=== PATIENT | female | born 1965 | race Caucasian/White ===

== ENCOUNTER → 2018-02-27 | Outpatient (CLI) | payer OTHER ==
[2018-02-27 09:24] LABS: ABSOLUTE NEUTROPHILS 4.8 thou/uL (1.4-8.2); EOSINOPHILS 4.8 % (0.0-3.0); HEMATOCRIT 41.2 % (37.0-47.0); HEMOGLOBIN 13.6 gm/dL (12.0-15.0); MCH 26.6 pg (26.0-34.0); MCHC 32.9 g/dL (28.0-37.0); MCV 81.1 fL (80.0-100.0); MONOCYTES 6.2 % (1.0-8.0); PLATELET COUNT 278 thou/uL (150-400); RBC 5.09 mil/uL (4.20-5.00); RDW 14.1 % (10.5-14.5); WBC 8.9 thou/uL (4.0-11.0)
[2018-02-27 09:50] LABS: ALBUMIN 3.8 g/dL (3.4-5.0); CALCIUM 9.1 mg/dL (8.5-10.1); CREATININE 1.3 mg/dL (0.6-1.0); POTASSIUM 4.2 mmol/L (3.5-5.1); TOTAL BILIRUBIN 0.5 mg/dL (<0.1-1.0); TOTAL PROTEIN 7.5 g/dL (6.4-8.2)
== END ==
LOC: CAT 08:53
PROVIDERS: Internal Medicine Cardiovascular Disease
DX: I48.91 Unspecified atrial fibrillation (principal); M47.814 Spondylosis without myelopathy or radiculopathy, thoracic region

== ENCOUNTER 2018-05-14 06:55 | Observation (INO) | payer OTHER ==
[2018-05-14] VITALS (13 sets, daily range): BP systolic 122–144; BP diastolic 71–89
[~2018-05-14] VITALS: Ht 167.6 cm; Wt 99.7 kg
--- NOTE | ~2018-05-14 | D ---
[facility] [place] [address] DISCHARGE SUMMARY Name: ERNESTO HERZOG Room #: 212-P [facility] Shaneka MAma#: [id number] Admission: 05/14/18 ������������������ Attend Phys: Stanley Hui MD Discharge: 05/15/18 ������������������ Date of : 67 Report #: [id number] THIS REPORT FOR: //name// CC: CRYSTAL HITCHCOCK FAM unknown Stanley [facility] DATE OF SERVICE: 05/15/2018 DISCHARGE DIAGNOSIS: Paroxysmal atrial fibrillation. PROCEDURES PERFORMED: AFib ablation. HOSPITAL COURSE: The patient is a 52-year-old female with history of paroxysmal AFib, despite antiarrhythmic drugs who is here for an ablation. She underwent successful AFib ablation with isolation of the 4 pulmonary veins using cryoablation. This was a straightforward procedure that took approximately 1 hour with no issues. HOSPITAL COURSE: She was monitored in the hospital overnight. She did well without any major issues. She had a mild sore throat from the intubation, but otherwise denied any chest pains, shortness of breath, fevers or chills or groin discomfort. DISCHARGE PHYSICAL EXAMINATION: HEART: Regular rate and rhythm. LUNGS: Clear to auscultation bilaterally. EXTREMITIES: Right groin showed no bruising or hematoma. DISCHARGE PLAN: Telemetry demonstrated normal sinus rhythm. As such, she was deemed stable for discharge home with instructions to follow up with the nurse practitioner in 2 weeks and me in 3 months. She will continue with flecainide and Eliquis therapy. ��������������������������������������������� ���������������������������������������� By: ��������������������������������������������� 0828 [id number] Stanley Hui MD /nt
--- NOTE | ~2018-05-14 | P ---
[facility] [place] [address] PROCEDURE REPORT Name: ERNESTO HERZOG Room #: 212-P [facility] M.R.#: [id number] Admission: 05/14/18 ������������������ Attend Phys: Stanley Hui MD Discharge: ������������������ Date of : 67 Report #: [id number] THIS REPORT FOR: //name// CC: CRYSTAL HITCHCOCK FAM unknown Stanley Hui [facility] DATE OF SERVICE: 05/14/2018 PREOPERATIVE DIAGNOSIS: Paroxysmal atrial fibrillation. POSTOPERATIVE DIAGNOSIS: Paroxysmal atrial fibrillation. PROCEDURES PERFORMED: 1. AFib ablation, CPT code 01641. 2. 3D mapping EP, CPT code 54671. 3. Intracardiac echocardiography, CPT code 64561. HISTORY: The patient is a 52-year-old female with history of paroxysmal atrial fibrillation despite antiarrhythmic drugs, who is here for an ablation. ANESTHESIA: The patient underwent general anesthesia with no anesthesia related complications. DESCRIPTION OF PROCEDURE: The patient was brought to the EP laboratory in a fasting and sedated state and prepped and draped in a sterile fashion. I injected lidocaine to the right groin region and obtained access to the right femoral vein x 3, placing an 8, 9, and 7-Bhutanese short sheath using the modified Seldinger technique. Next, under fluoroscopy, I placed a decapolar catheter easily in the coronary sinus and an ice catheter in the right atrium. Using intracardiac ultrasound, I created a detailed 3D geometry of the left atrium with evidence of a small left atrial appendage, a left common ostium, and a right superior and right inferior pulmonary vein. At baseline, the patient was in sinus rhythm with a sinus cycle length of 1023 milliseconds, MT interval 150 milliseconds, QRS duration 70 milliseconds, QT interval 445 milliseconds. Next, the patient was systemically heparinized and a transseptal was performed using an SL1 sheath and a [place] needle. This was a straightforward and the SL1 was advanced into the left atrium. Next, a Lasso catheter was placed into the left atrium and a 3D geometry and voltage map of the left atrium was created and this was merged with our intracardiac ultrasound imaging and cardiac CT scan. Next, I exchanged the SL1 sheath for the cryo sheath and placed the cryoballoon into the left atrium. Next, I started by isolating the superior branch of the left common ostium. I performed two 4-minute freezes in the vein isolated within 27 seconds of the second freeze. I then turned my attention to the left inferior pulmonary vein. It appeared that this had likely isolated as well given that [address] [address] PROCEDURE REPORT Name: ERNESTO HERZOG Room #: [address] [place] [address] M.R.#: [id number] Admission: 05/14/18 ������������������ Attend Phys: Stanley Hui MD Discharge: ������������������ Date of : 67 Report #: [id number] this was a common ostium. I went ahead and performed two 4-minute freezes in the left inferior pulmonary branch as well in order to ensure that we obtained persistent isolation of the ostium. I then turned my attention to the right superior pulmonary vein and I performed a 4-minute freeze, which did not result in isolation. I performed a second freeze, which resulted in isolation within 45 seconds and I stayed on for 160 seconds as the temperatures were -50 degrees. I then turned my attention to the right inferior pulmonary vein. I performed a 4-minute freeze followed by a 3-minute freeze. I could not see timed isolation during this freeze, but upon interrogation of the ostium, this was clearly isolated. As such all veins were reinterrogated and there was evidence of entrance and exit block. As such, the procedure was concluded. Post-ablation, she was in sinus rhythm with sinus cycle length of 800 milliseconds, MT interval 150 milliseconds, QRS duration 70 milliseconds, QT interval 390 milliseconds. Using intracardiac ultrasound, I verified there was no evidence of pericardial effusion. The patient received systemic protamine and once the ACT was within acceptable range, all catheters and sheaths were pulled and hemostasis was obtained. The patient awoke neurologically and hemodynamically intact. No complications and no significant bleeding. CONCLUSIONS: Successful AFib ablation with isolation of the left common ostium in the right superior and right inferior pulmonary veins. ��������������������������������������������� ���������������������������������������� By: ��������������������������������������������� [id number] [id number] Stanley Hui MD /nt
[2018-05-14 07:31] LABS: ABSOLUTE NEUTROPHILS 4.3 thou/uL (1.4-8.2); EOSINOPHILS 5.6 % (0.0-3.0); HEMATOCRIT 37.5 % (37.0-47.0); HEMOGLOBIN 12.5 gm/dL (12.0-15.0); LYMPHOCYTES 34.6 % (24.0-44.0); MCH 27.7 pg (26.0-34.0); MCHC 33.4 g/dL (28.0-37.0); MCV 82.9 fL (80.0-100.0); MONOCYTES 7.3 % (1.0-8.0); POLYS 51.5 % (36.0-66.0); RBC 4.52 mil/uL (4.20-5.00); RDW 14.2 % (10.5-14.5); WBC 8.3 thou/uL (4.0-11.0)
[2018-05-14 07:40] LABS: CALCIUM 9.4 mg/dL (8.5-10.1); CREATININE 1.1 mg/dL (0.6-1.0)
[2018-05-14] MEDS ORDERED: ASPIR 8181 MG PO (07:44)
[2018-05-14] MEDS ORDERED: ELIQUIS5 MG PO (07:44)
[2018-05-14] MEDS ORDERED: LIPITOR10 MG PO (07:44)
[2018-05-14] MEDS ORDERED: ESTRADIOL 1 MG T1 M1 PO (07:45)
[2018-05-14] MEDS ORDERED: CARISOPRODOL 3350 MG PO (07:45)
[2018-05-14] MEDS ORDERED: LOPRESSOR25 PO (07:46)
[2018-05-14] MEDS ORDERED: FLECAINIDE ACET50 M1 PO (07:46)
[2018-05-14 07:47] LABS: ALBUMIN 3.7 g/dL (3.4-5.0); TOTAL BILIRUBIN 0.4 mg/dL (<0.1-1.0); TOTAL PROTEIN 7.3 g/dL (6.4-8.2)
[2018-05-14] MEDS ORDERED: DETROL2 M1 PO (07:47)
[2018-05-14 07:59] LABS: APTT 28.6 Seconds (24.5-32.8); PROTIME 9.8 Seconds (9.3-11.4)
[2018-05-14 08:58] LABS: PLATELET COUNT 248 thou/uL (150-400); PLATELET ESTIMATE NORMAL
--- NOTE | 2018-05-14 17:22 | NUR ---
PT CARE ASSUMED APPROX 1250. PT ARRIVED FOR PACU POST AFIB ABLATION. RIGHT GROIN POST SHEATH SITE C/D/I. AT BEDSIDE. VSS. POST ABLATION PROTOCOL INITIATED. PT COMPLIANT WITH RLE IMMOBILIZATION AND BEDREST. PT C/O HEADACHE 08/26. HYDROCODONE USED TO MANAGE PAIN. PT REPORTED RELIEF AFTER BUT C/O 08/26 HEADACHE AGAIN AT THIS TIME. JEREZ PATENT. WILL ASSESS PT'S GAIT AFTER BEDREST COMPLETED AND URINARY CATH WILL BE DISCONTINUED. PT EDUCATED ON FIRST VOID POST CATH REMOVAL NEED TO BE EVALUATED BY THE NURSE. NO DISTRESS NOTED.
--- NOTE | 2018-05-14 18:42 | NUR ---
JEREZ REMOVED WITHOUT ISSUE AND GAIT ASSESSED. GAIT STEADY.
[2018-05-15 00:32] VITALS: BP 129/60
--- NOTE | 2018-05-15 01:49 | NUR ---
ASSUMED CARE AT 190O. POST EP ABLATION. AXOX4. C/O HEADACHE AND ESOPHAGEAL PAIN. VSS. CALLED [employer] FOR AND OBTAINED AN ORDER FOR MYLANTA AND BENZOCAINE SPRAY. PERSISTENT ESOPHAGEAL IRRITATION AND UNCOMFORTABLENESS. PER PT, THERE IS NO SOA/SOB JUST INTERMITTENT UNCOMFOTABLENESS. PER , PROBABLY IRRITATION FROM ABLATION. PER PT, SHE WILL FEEL BETTER IF SHE WENT TO SLEEP. PAGED AGAIN AND OBTAINED AN ORDER FOR XANEX. WILL ZAMORA DOSE. NO S/S ACUTE DISTRESS NOTED OR REPORTED AT THIS TIME. WILL CONT TO MONITOR FOR ANY CHANGES IN CONDITION.
[2018-05-15 04:42] VITALS: BP 125/74
[2018-05-15 08:21] VITALS: BP 125/74
[2018-05-15 09:19] VITALS: BP 110/70
--- NOTE | 2018-05-15 09:28 | NUR ---
PT CARE ASSUMED APPROX 0700. PT ALERT AND ORIENTED X4. DENIES PAIN AND SOA. VSS. DISCHARGE PAPERWORK REVIEWED WITH PT AFTER DR BACK REVIEWED ALL POST ABLATION/POST HOSPTIAL CARES WITH PT. PT DENIES CONCERNS REGARDING MEDS, DIET, ACTIVITY, POST ABLATION CARE, RIGHT GROIN SITE CARE, AND GENERAL POST HOSPITAL CARES. IV OUT, TELE BOX OFF. PT INSISTS ON WALKING OUT FOR DISCHARGE. NURSE WILL WALK WITH PT. PRESENT TO TRANSPORT HOME.
[2018-05-15 10:13] VITALS: BP 125/74
== END 2018-05-15 10:28 | disposition home or self-care (01) ==
LOC: CATH 06:55 → 2N 13:04 → CATH 13:23 → 2N 05-15 10:28
PROVIDERS: ADMIT Internal Medicine Cardiovascular Disease
DX: I48.0 Paroxysmal atrial fibrillation (principal)
CPT/HCPCS: 62110; 62900; 65020; 65040; 70005

== ENCOUNTER → 2018-06-04 | Outpatient (CLI) | payer OTHER ==
[~2018-06-04] MED LIST: ASPIR 8181 MG PO; CARISOPRODOL 3350 MG PO; DETROL2 M1 PO; ELIQUIS5 MG PO; ESTRADIOL 1 MG T1 M1 PO; FLECAINIDE ACET50 M1 PO; LIPITOR10 MG PO; LOPRESSOR25 PO
== END ==
LOC: CAT 08:05
DX: Z13.6 Encounter for screening for cardiovascular disorders (principal); E78.00 Pure hypercholesterolemia, unspecified; I25.10 Atherosclerotic heart disease of native coronary artery without angina pectoris